=== PATIENT | male | born 1975 | race Caucasian/White ===

== ENCOUNTER 2018-12-25 12:33 | Emergency (ER) | payer SELFPAY ==
[2018-12-25 12:34] VITALS: BP 138/88; PULSE 57; RESP 16; TEMP 36.6; O2SAT 99; BMI 24.5
--- NOTE | 2018-12-25 12:56 | EKG12_ITS ---
Test Reason : Blood Pressure : / mmHG Vent. Rate : 050 BPM Atrial Rate : 050 BPM P-R Int : 190 ms QRS Dur : 120 ms QT Int : 434 ms P-R-T Axes : 069 068 045 degrees QTc Int : 395 ms Sinus bradycardia Left ventricular hypertrophy with QRS widening Abnormal ECG Confirmed by SHILA SALEH, RAYSA ([id number]), news assignment editor RAYSHAWN VAZQUEZ ([id number]) on 12/26/2018 11:44:14 AM Referred By: JOHN Confirmed By:RAYSA FUCHS MD
--- NOTE | 2018-12-25 12:56 | RAD_ITS ---
STUDY: X-RAY CHEST REASON FOR EXAM: Male, 43 years old. Shortness of breath. Chest tightness. TECHNIQUE: Single AP portable view of the chest. COMPARISON: June 28, 2016. FINDINGS: The lungs are clear and expanded. There is no demonstrated pleural abnormality. Normal size heart. Normal mediastinum and christopher. Normal visualized pulmonary arteries. Normal visualized aortic arch and descending thoracic aorta. Normal visualized thoracic spine. Normal visualized ribs, clavicles, and shoulders. There is no demonstrated abnormality of the visualized soft tissue structures of the upper abdomen. RAD/Chest 1 View (Portable) IMPRESSION: Normal x-ray examination of the chest. Electronically Signed: Ambrosio Kirk MD at 13:10 EDT , Service support ,
[2018-12-25] MEDS: 0.9% Normal Saline 1,000 ML 1000 ML IV (13:12)
[2018-12-25 13:13] VITALS: BP 150/86; PULSE 50; RESP 11; O2SAT 100
[2018-12-25 13:14] LABS: Absolute Lymphocyte Count 1.58 X10^3/uL (0.83-4.51); Absolute Neutrophil Count 3.3 X10^3/uL (2.0-7.7); Basophil# 0.03 X10^3/uL; Basophil% 0.5 % (0-1); Eosinophil# 0.13 X10^3/uL; Eosinophils% 2.3 % (0-5); Hematocrit 44.6 % (40-54); Hemoglobin 14.9 g/dL (13.0-16.5); Lymphocyte # 1.58 X10^3/ul (4.0); Lymphocyte % 28.4 % (19-41); Mean Corp Hgb Conc 33.4 g/dL (32-36); Mean Corpuscular Hgb 31.6 pg (27.0-32.0); Mean Corpuscular Volume 94.7 fL (80-94); Mean Platelet Vol. 9.5 fl (6.2-12.0); Monocyte# 0.54 X10^3/uL; Monocyte% 9.7 % (0-10); NRBC Flagged by Analyzer 0 % (0-5); Neutrophil # 3.26 X10^3/uL (2.7-7.7); Neutrophil % 58.7 % (47-70); Platelet Count 225 K/mm3 (150-450); RBC Distribution Width CV 12.2 % (11.6-14.6); RBC Distribution Width SD 42.9 fl (35.1-43.9); Red Blood Count 4.71 M/mm3 (4.6-6.2); White Blood Count 5.6 K/mm3 (4.4-11.0)
[2018-12-25 13:27] LABS: D-Dimer Quantitative (DVT/PE) < 0.27 FEU/ug/m (0.27-0.49)
[2018-12-25 13:32] LABS: Anion Gap 5 (5-15); BUN 12 mg/dL (7-18); BUN/Creat Ratio 12.6 RATIO (10-20); Calcium,Total 9.5 mg/dL (8.5-10.1); Chloride 108 mmol/L (98-107); Creatinine, Serum 0.96 mg/dL (0.70-1.30); EST Glomerular Filtration Rate 91 mL/min (>60); Est Glom Filt Rate - Afr Amer 111 mL/min (>60); Estimated Creatinine Clearance 118.58 ml/min; Glucose 98 mg/dL (74-106); Potassium 3.8 mmol/L (3.5-5.1); Sodium Level 140 mmol/L (136-145)
--- NOTE | 2018-12-25 14:04 | ED.DCSUM_ITS ---
- ER Visit Summary Date of Service: 12/25/18 Chief Complaint: Tingling all over. History of Present Illness: The patient is a 43 M presenting with multiple complaints. Patient states he has a sensation of tingling in both arms. He states that this was worse yesterday. He had an episode of palpitations and not feeling right. He denies chest pain or syncope. Denies fever or cough. Denies abdominal pain. He states he has a history of anxiety. He has been under increased stress as he is trying to reconcile with his . Denies suicidal or homicidal ideation. He is a smoker. Denies PE/DVT risk factors. Physical Examination: Vitals are stable. Patient is afebrile. Alert no acute distress. HEENT exam is unremarkable. Neck is supple. Lungs are clear and equal bilaterally. Heart is regular rate and rhythm. Abdomen is soft nontender nondistended. Extremities are unremarkable. Skin is warm and dry. No focal neurologic deficit. NIH 0 Remainder of exam is unremarkable. Emergency Department Course and Treatment: EKG is sinus rhythm rate of 50 with no acute ischemic changes. CBC, chemistries unremarkable. Troponin is negative. D-dimer negative. Chest x-ray shows no acute process. On reevaluation, patient is feeling improved. He declined delta troponin. He will follow-up with his primary care physician. He is advised return to ED for worsening complaints. Disposition: Discharge home Impression: Palpitations, resolved; anxiety This note was generated with [employer] dictation software. It may contain incorrect words, spelling, and punctuation that were not noted in review of the chart prior to signing ED Disposition - Plan for ED Patient: Instructions: Anxiety Reaction, Palpitations Referrals: Jhonny Stringer III, MD [Primary Care Provider] -
[2018-12-25 14:50] VITALS: BP 129/71; PULSE 56; RESP 16; O2SAT 99
--- NOTE | 2018-12-25 14:59 | ED.DEP ---
ED Disposition - Plan for ED Patient: Instructions: Palpitations, Anxiety Reaction Referrals: Jhonny Stringer III, MD [Primary Care Provider] -
[2018-12-25 15:17] VITALS: BP 131/106; PULSE 60; RESP 17; O2SAT 99
== END 2018-12-25 15:18 | disposition home or self-care (01) ==
LOC: ED 13:14
PROVIDERS: Emergency Provider Emergency Medicine; Family Provider Family Medicine; PCP Family Medicine
DX: R00.2 Palpitations (principal); F41.9 Anxiety disorder, unspecified; F17.200 Nicotine dependence, unspecified, uncomplicated
CPT/HCPCS: 71045; 80048; 84484; 85025; 85379; 93005; 96360; 99284; J7030; A4216

== ENCOUNTER → 2019-12-01 17:15 | Outpatient (CLI) | payer SELFPAY | LOC: MTDU 17:15 | PROVIDERS: PCP Family Medicine; Referring Provider Family Medicine; Visit Provider Family Medicine | DX: Z20.828 Contact with and (suspected) exposure to other viral communicable diseases (principal) | CPT/HCPCS: 87635; 94799; U0003 ==

== ENCOUNTER 2022-12-31 13:06 | Emergency (ER) | payer OTHER, SELFPAY ==
[2022-12-31 13:08] VITALS: BP 110/66; PULSE 60; RESP 18; TEMP 35.8; O2SAT 100
[2022-12-31] MEDS: Ibuprofen 600 MG Tablet PO (13:53)
--- NOTE | 2022-12-31 14:00 | RAD_ITS ---
STUDY: X-RAY - LEFT HUMERUS REASON FOR EXAM: Male, 47 years old. Left arm pain following a fall. TECHNIQUE: 3 view(s) of the humerus. COMPARISON: None. FINDINGS: Normal visualized humerus. There is no demonstrated fracture or osseous destructive process. There is no demonstrated soft tissue abnormality. RAD/Humerus min 2 Views IMPRESSION: Normal x-ray examination of the humerus. Electronically Signed: Shayne Albert MD at 14:25 EDT ,
--- NOTE | 2022-12-31 14:00 | RAD_ITS ---
STUDY: X-RAY - LEFT ELBOW REASON FOR EXAM: Male, 47 years old. Left elbow pain following a fall. TECHNIQUE: 3 view(s) of the elbow. COMPARISON: None. FINDINGS: Normal visualized humerus, radius and ulna. Normal radiocapitellar and ulnotrochlear articulations. The soft tissue structures are unremarkable. RAD/Elbow min 3 Views IMPRESSION: Normal x-ray examination of the elbow. Electronically Signed: Shayne Albert MD at 14:24 EDT ,
--- NOTE | 2022-12-31 15:01 | EX.ED.GENINJ ---
HPI History of Present Illness Chief Complaint: Fall Informant: patient Narrative Narrative: Patient is a 47-year-old male with no significant past medical history presenting for evaluation after fall. 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 The ladder fell underneath him. He landed mostly on his left side. He is complaining of pain over his left ribs, his left elbow and some slight pain of his right forearm and right ankle. Denied his head and denies any loss of conscious. Is not any blood thinners. Did not take anything for pain prior to arrival. This is a Workmen's Compensation injury. No other complaints or concerns at this time. [facility] Medical History Fall Home Medications ginkgo biloba 120 mg tablet 1 tab PO DAILY 06/28/16 [History Last Taken Unknown] horse chestnut 300 mg capsule 300 mg PO DAILY 06/28/16 [History Last Taken Unknown] multivitamin (Multiple Vitamins tablet) 1 ea PO DAILY 06/28/16 [History Last Taken Unknown] oxycodone-acetaminophen 5 mg-325 mg tablet (Percocet) 1 tab PO Q8H PRN pain 3 days #10 tabs 12/31/22 [Rx Last Taken Unknown] Allergy/AdvReac Type Severity Reaction Status Date / Time insect venom Allergy Hives Verified 12/31/22 13:08 Social History Smoking Status: Current every day smoker tobacco type: cigarettes ROS ROS ED Constitutional Constitutional ED: Denies chills Eyes Eyes: Denies change in vision Cardiovascular Cardiovascular: Denies chest pain Respiratory/Chest Respiratory/Chest: Reports other Details: Chest wall pain/rib pain on the left side ; Denies cough or dyspnea Gastrointestinal Gastrointestinal: Denies abdominal pain, nausea or vomiting Musculoskeletal Musculoskeletal: Reports other Details: Right distal forearm pain, left elbow/distal humerus pain, right ankle pain ; Denies back pain or myalgias Integumentary Reports Abrasions; Denies rash Neurologic Neurologic: Denies headache(s), paresthesias or weakness Hematologic/Lymphatic Hematologic/Lymphatic: Denies easy bleeding or easy bruising EXAM Physical Exam Const Vital Signs: 12/31/22 13:08 12/31/22 13:25 Temperature 96.5 F L Temperature Source Temporal Pulse Rate 60 Respiratory Rate 18 Respiratory Effort Normal Non-Labored Respiratory Depth Normal Respiratory Pattern Normal Blood Pressure 110/66 Blood Pressure Mean 80 Pulse Ox 100 Oxygen Delivery Method Room Air Positive well nourished and well developed General Appearance ED: well developed and NAD HEENT Reports TM's clear atraumatic Tympanic Membrane ED: Yes TM's clear Eyes PERRL and EOMs intact bilaterally Neck full ROM General: Negative for tenderness Chest Wall inspection of chest normal Chest Narrative: Very mild tenderness to palpation over the left lower ribs. No chest wall crepitus. No deformity. No flail chest Resp normal respiratory effort and clear to auscultation bilaterally Cardio regular rhythm and no murmurs Rate: regular rate GI normal to inspection, nondistended, normoactive bowel sounds Back/Spine normal to inspection and no thoracic nor lumbar tenderness Extremity Extremity Narrative: Right upper extremity?no deformity, no bony abnormalities or tenderness. Specifically no tenderness over the distal radius, ulna or anatomical snuffbox Upper extremity?no obvious deformity. Mild bony tenderness to the left olecranon and the distal humerus. No bony tenderness over the radial ulnar head, no wrist deformity or tenderness to palpation. Lower extremities?pelvis is stable. No obvious deformity. Very mild tenderness to the ankle but no bony abnormalities or soft tissue swelling appreciated. 2+ DP pulse present General Extremety ED: Negative for deformity or edema General Extremity: Negative for deformity or edema Neuro oriented x3 Ama Coma Scale: document GCS findings Spontaneous Obeys Commands Oriented 15 Sensorium / Orientation: alert Psych mental status grossly normal and thought process normal Skin Skin Narrative: Visual abrasions with no active bleeding to the left distal humerus and the right palmar aspect of the distal forearm MDM MDM MDM Narrative Medical decision making narrative: Valuated for fall of an 18 foot ladder. Does have some associated pain to no obvious deformity. White complain of some rib pain he does not have any significant tenderness palpation/pinpoint area of tenderness, is not hypoxic or tachycardic. I have a low suspicion for rib fracture do not think he requires a rib series at this time. X-ray of the left elbow as well as the humerus, reviewed by myself as well as radiology does not show any acute fracture. Patient given dose of Motrin in the ER. He is given a Lidoderm patch for his rib pain and 1 dose of oxycodone prior to discharge for further pain control. Will be scribed short course of Percocet for pain control. We will [facility]-up with [facility]. Is given work restrictions. Given return precautions. Discharged home in stable condition. Radiography Diagnostic Testing: Clinical Impression(s) from Imaging Studies Elbow X-Ray 12/31/22 14:00 IMPRESSION: Normal x-ray examination of the elbow. Electronically Signed: Shayne Albert MD at 14:24 EDT , Humerus X-Ray 12/31/22 14:00 IMPRESSION: Normal x-ray examination of the humerus. Electronically Signed: Shayne Albert MD at 14:25 EDT , Discharge Plan Triage Chief Complaint: Fall ED Provider: Bia Justice Dx/Rx/DC Orders Clinical Impression: Accidental fall from ladder, Acute pain of right wrist, Elbow pain, left, Chest wall contusion Instructions: ED Contusion, Elbow, ED Chest Wall Contusion Prescriptions: New oxycodone-acetaminophen [Percocet] 5-325 mg tablet 1 tab PO Q8H PRN (Reason: pain) 3 Days Qty: 10 0RF No Action multivitamin [Multiple Vitamins] 1 EACH tablet 1 ea PO DAILY ginkgo biloba 120 MG tablet 1 tab PO DAILY horse chestnut 300 MG capsule 300 mg PO DAILY Stand Alone Forms: Work Status Form Primary Care Provider: Khanh Nguyen Referrals: [facility] [Group of Physicians] - As soon as possible Khanh Nguyen PA [Primary Care Provider] - Activity Restrictions/Additional Instructions: [facility] with the [facility]. May also take [id number]-[id number] ibuprofen (600 mg) and use bnaa-[id number]-mdnwtul Salonpas Exer strength 4% patches for rib pain. Disposition Disposition: Home, Self Care
[2022-12-31] MEDS: Lidocaine 5% Patch 1 PATCH TOPICAL (15:17)
== END 2022-12-31 15:38 | disposition home or self-care (01) ==
PROVIDERS: Emergency Provider Emergency Medicine; PCP Physician Assistant; Visit Provider Emergency Medicine
DX: M25.531 Pain in right wrist (principal); M25.522 Pain in left elbow; S20.20XA Contusion of thorax, unspecified, initial encounter; F17.210 Nicotine dependence, cigarettes, uncomplicated; W11.XXXA Fall on and from ladder, initial encounter
CPT/HCPCS: 73060; 73080; 99283

== ENCOUNTER 2024-08-28 15:08 | Emergency (ER) | payer SELFPAY ==
[2024-08-28 15:08] VITALS: BP 140/95; PULSE 78; RESP 18; TEMP 36.2; O2SAT 97; BMI 25.5
--- NOTE | 2024-08-28 15:17 | EKG12_ITS ---
Test Reason : Blood Pressure : */* mmHG Vent. Rate : 76 BPM Atrial Rate : 76 BPM P-R Int : 158 ms QRS Dur : 100 ms QT Int : 374 ms P-R-T Axes : 73 80 63 degrees QTcB Int : 420 ms Normal sinus rhythm with sinus arrhythmia Normal ECG Confirmed by Gabe Reynoso ([id number]), editor managing director MANI NICK ([id number]) on 09/04/2024 12:57:56 PM Referred By: Confirmed By: Gabe Reynoso
--- NOTE | 2024-08-28 15:23 | RAD_ITS ---
PROCEDURE: CHEST PA AND LATERAL 08/28/2024 REASON FOR EXAM: CHEST PAIN TECHNIQUE: Frontal and lateral views of the chest. COMPARISON: None. FINDINGS: Hardware: None. Heart: The heart size is normal. Mediastinum: The mediastinal contour is unremarkable. Lungs: Findings of emphysema and scattered areas of scarring. No focal consolidation, pleural effusion or pneumothorax. Bones: The bones are unremarkable. RAD/Chest PA and Lateral IMPRESSION: Emphysema. No acute findings. Reading Location: [id number]
--- NOTE | 2024-08-28 15:24 | ED.VIS.CHEST ---
HPI History of Present Illness Chief Complaint: Chest Pain Informant: patient and spouse/S.O. Narrative Narrative: Presents today recurrent chest tightness today. Yesterday had symptoms noting tightness left side discomfort bilateral neck and with his head. [place] lightheaded. 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 He may had symptoms few weeks ago. No history of MIs. Tobacco history. Maternal grandparents with MIs in their 60s. Denies hypertension diabetes or hyperlipidemia. Tobacco history. No recent travel or surgery. No history PE or DVT. Denies cough symptoms. No history of stress test. Prior Similar Symptoms: Yes CVD Risk Factors: Positive for Smoking; Negative for Hypertension, Diabetes, Hypercholesterolemia or Family History 1' </=55 PE Risk Factors: Negative for Recent Travel/Surgery, Recent Immobilization, Prior DVT or PE or Cancer [facility] Medical History Fall Home Medications ?Medication ?Instructions ?Recorded ?Last Taken ?Type lorazepam 0.5 mg tablet 0.5 mg PO DAILY PRN anxiety 08/28/24 08/28/24 History Allergy/AdvReac Type Severity Reaction Status Date / Time insect venom Allergy Hives Verified 08/28/24 15:08 Family History no significant family his Social History Smoking Status: Current every day smoker tobacco type: cigarettes ROS ROS ED Constitutional Constitutional ED: Denies chills, fever(s) or sweats ENT ENT ED: Denies sore throat Cardiovascular Cardiovascular: Reports chest pain; Denies leg edema, palpitations or racing heartbeat Respiratory/Chest Respiratory/Chest: Denies cough, dyspnea or dyspnea on exertion Gastrointestinal Gastrointestinal: Denies abdominal pain, diarrhea, nausea or vomiting Genitourinary Genitourinary ED: Denies dysuria, hematuria or urinary frequency Musculoskeletal Musculoskeletal: Denies back pain, extremity pain or neck pain Integumentary Denies rash or wounds Neurologic Neurologic: Denies headache(s), paresthesias or weakness EXAM Physical Exam Const Vital Signs: 08/28/24 15:08 08/28/24 15:31 08/28/24 15:32 Temperature 97.2 F L Temperature Source Temporal Pulse Rate 78 Respiratory Rate 18 Respiratory Effort Normal Non-Labored Blood Pressure 140/95 H Blood Pressure Mean 110 Pulse Ox 97 Oxygen Delivery Method Room Air Room Air 08/28/24 16:28 08/28/24 16:56 08/28/24 18:00 Temperature Temperature Source Pulse Rate 53 L 61 60 Respiratory Rate 15 16 13 Respiratory Effort Blood Pressure 142/100 H 137/80 H 129/80 H Blood Pressure Mean 114 99 92 Pulse Ox 100 100 100 Oxygen Delivery Method Room Air 08/28/24 18:09 Temperature 97.9 F Temperature Source Pulse Rate 60 Respiratory Rate 13 Respiratory Effort Blood Pressure 129/80 H Blood Pressure Mean 96 Pulse Ox 100 Oxygen Delivery Method Positive well nourished and well developed General Appearance ED: well developed and NAD HEENT Reports moist mucous membranes normocephalic and atraumatic Eyes General Eye ED: Yes normal appearance of both eyes Neck full ROM Chest Wall Chest: Negative for tenderness Resp normal respiratory effort and normal air movement Effort and Inspection: symmetric chest movement; Negative for respiratory distress Cardio regular rate, regular rhythm and no murmurs Peripheral Pulses: pulses 2+ throughout GI normal to inspection, nondistended, normoactive bowel sounds and non-tender Palpation: Negative for guarding or rebound tenderness present Extremity normal to inspection General Extremety ED: Negative for edema or tenderness General Extremity: Negative for edema Neuro oriented x3, CN's II-XII intact bilaterally and no sensory deficits noted Neuro Narrative: No focal deficits. Sensorium / Orientation: awake and alert Skin no rashes or lesions noted and no wounds Heart Score History: Slightly/Non-Suspicious ECG: Normal Age: >45 - <65 years Risk Factors: 1 or 2 Risk Factors Troponin: </= Normal Limit Score: 2 MDM MDM MDM Narrative Medical decision making narrative: Interventions / MDM: Differential diagnosis: Chest pain, tobacco dependence Diagnosis considered but do not suspect: Pulmonary emboli however PERC criteria negative. ACS however EKG and cardiac enzymes negative. My EKG interpretation: Sinus rate of 76, no ST or T wave changes. QTc 420. Imaging independently reviewed and interpreted by myself: 2 view chest x-ray: Hyperinflated lungs, also read by radiology. External documents reviewed: N/A Test considered but not ordered:N/A ED course: Transient chest tightness symptoms lightheaded symptoms. PERC criteria negative. EKG no acute findings. Cardiac workup initiated. Chest x-ray ordered. 1606: Chest x-ray negative. CBC results returned hemoglobin 14.8 white count 7.5 platelets 261. 1640: Remains symptom-free. Initial troponin negative. Updated patient on findings. Discussed emphysema changes and chest x-ray. Discussed tobacco cessation. Will await delta troponin prior to disposition. Delta troponin negative. Remains symptom-free. Discussed tobacco cessation again. Discussed outpatient follow-up for further workup as needed. Discussed return precautions. All questions were answered. Re-evaluation: stable Disposition discussed with patient/family/significant other: Patient and significant other Case discussed with consulting clinician: N/A This note was generated with [employer] software. It may contain incorrect words, spelling, and punctuation that were not noted in checking the note before signing. Lab Data Attestation: I reviewed the patient's lab results. Labs: Laboratory Results - last 24 hr 08/28/24 08/28/24 15:25 17:20 WBC 7.5 RBC 4.72 Hgb 14.8 Hct 43.6 MCV 92.4 MCH 31.4 MCHC 33.9 RDW Std Deviation 41.8 RDW Coeff of Jennyfer 12.2 Plt Count 261 MPV 9.5 Immature Gran % (Auto) 0.400 Neut % (Auto) 72.6 H Lymph % (Auto) 17.9 L Linn % (Auto) 7.6 Eos % (Auto) 1.1 Baso % (Auto) 0.4 Absolute Neuts (auto) 5.5 Absolute Lymphs (auto) 1.34 Nucleated RBC % 0 Sodium 140 Potassium 4.2 Chloride 104 Carbon Dioxide 24.9 Anion Gap 12 BUN 15 Creatinine 0.95 Estim Creat Clear Calc 113.65 Est GFR (MDRD) Non-Af 98 BUN/Creatinine Ratio 15.2 Glucose 117 H Calcium 9.9 Troponin T High Sens 7 Troponin T Hi Sens 2 Hr 6 Radiography Diagnostic Testing: Clinical Impression(s) from Imaging Studies Chest X-Ray 08/28/24 15:23 IMPRESSION: Emphysema. No acute findings. Reading Location: [id number] Discharge Plan Triage Chief Complaint: Chest Pain ED Provider: Morales Lozada Dx/Rx/DC Orders Clinical Impression: Chest pain, Tobacco dependence Instructions: Quitting Smoking, ED Chest Pain, Uncertain Cause Prescriptions: No Action lorazepam 0.5 mg tablet 0.5 mg PO DAILY PRN (Reason: anxiety) Primary Care Provider: Khanh Nguyen Referrals: Khanh Nguyen, PA [Primary Care Provider] - 3-5 Days Activity Restrictions/Additional Instructions: Your cardiac workup negative today. X-ray with emphysema findings concerned with your tobacco history. Stop smoking. Follow-up with your primary care doctor for further testing. If you develop new or worsening symptoms, return to the ED for reevaluation. Print Language: Slovenian Disposition Disposition: Home, Self Care Discharge Date/Time: 08/28/24 18:12
[2024-08-28 15:41] LABS: Absolute Lymphocyte Count 1.34 X10^3/uL (0.83-4.51); Absolute Neutrophil Count 5.5 X10^3/uL (2.0-7.7); Basophil# 0.03 X10^3/uL; Basophil% 0.4 % (0-1); Eosinophil# 0.08 X10^3/uL; Eosinophils% 1.1 % (0-5); Hematocrit 43.6 % (40-54); Hemoglobin 14.8 g/dL (13.0-16.5); Lymphocyte # 1.34 X10^3/ul (0.83-4.51); Lymphocyte % 17.9 % (19-41); Mean Corp Hgb Conc 33.9 g/dL (32-36); Mean Corpuscular Hgb 31.4 pg (27.0-32.0); Mean Corpuscular Volume 92.4 fL (80-94); Mean Platelet Vol. 9.5 fl (6.2-12.0); Monocyte# 0.57 X10^3/uL; Monocyte% 7.6 % (0-10); NRBC Flagged by Analyzer 0 % (0-5); Neutrophil # 5.45 X10^3/uL (2.7-7.7); Neutrophil % 72.6 % (47-70); Platelet Count 261 K/mm3 (150-450); RBC Distribution Width CV 12.2 % (11.6-14.6); RBC Distribution Width SD 41.8 fl (35.1-43.9); Red Blood Count 4.72 M/mm3 (4.6-6.2); White Blood Count 7.5 K/mm3 (4.4-11.0)
[2024-08-28 16:22] LABS: Anion Gap 12 (5-15); BUN 15 mg/dL (4-19); BUN/Creat Ratio 15.2 RATIO (10-20); Calcium,Total 9.9 mg/dL (7.6-11.0); Carbon Dioxide 24.9 mmol/L (21.0-32.0); Chloride 104 mmol/L (98-108); Creatinine, Serum 0.95 mg/dL (0.70-1.20); EST Glomerular Filtration Rate 98 (>60); Estimated Creatinine Clearance 113.65 ml/min (50-250); Glucose 117 mg/dL (70-99); Potassium 4.2 mmol/L (3.3-5.1); Sodium Level 140 mmol/L (133-145); Troponin T High Sensitivity 7 ng/L (<=22)
[2024-08-28 16:28] VITALS: BP 142/100; PULSE 53; RESP 15; O2SAT 100
[2024-08-28 16:56] VITALS: BP 137/80; PULSE 61; RESP 16; O2SAT 100
[2024-08-28 17:47] LABS: Troponin T High Sens 2 HR 6 ng/L (<=22)
[2024-08-28 18:00] VITALS: BP 129/80; PULSE 60; RESP 13; O2SAT 100
[2024-08-28 18:09] VITALS: BP 129/80; PULSE 60; RESP 13; TEMP 36.6; O2SAT 100
== END 2024-08-28 18:12 | disposition home or self-care (01) ==
PROVIDERS: Emergency Provider Emergency Medicine; PCP Physician Assistant; Visit Provider Emergency Medicine
DX: R07.9 Chest pain, unspecified (principal); F17.210 Nicotine dependence, cigarettes, uncomplicated
CPT/HCPCS: 71046; 80048; 84484; 85025; 93005; 99283

== ENCOUNTER 2025-01-02 13:18 | Emergency (ER) | payer OTHER, SELFPAY ==
[2025-01-02 13:22] VITALS: BP 135/81; PULSE 68; RESP 18; TEMP 36.3; O2SAT 100; BMI 25.4
--- NOTE | 2025-01-02 14:24 | EKG12_ITS ---
Test Reason : ELECTRIC SHOKE Blood Pressure : */* mmHG Vent. Rate : 62 BPM Atrial Rate : 62 BPM P-R Int : 190 ms QRS Dur : 120 ms QT Int : 404 ms P-R-T Axes : 65 55 44 degrees QTcB Int : 410 ms Normal sinus rhythm Non-specific intra-ventricular conduction delay Minimal voltage criteria for LVH, may be normal variant ( Sokolow-Wilde ) Borderline ECG Confirmed by RAYSA FUCHS MD ([id number]), editor magazine MANI NICK ([id number]) on 01/03/2025 9:10:49 AM Referred By: GABY/KELIN Confirmed By: RAYSA FUCHS MD
--- NOTE | 2025-01-02 14:24 | RAD_ITS ---
PROCEDURE: CHEST PA AND LATERAL 01/02/2025 REASON FOR EXAM: ELECTROCUTED TECHNIQUE: Procedure Code: RADCXR Modality: DX Procedure: CHEST PA AND LATERAL COMPARISON: None FINDINGS: Hardware: EKG leads overlie the chest Heart: The heart size is normal. Mediastinum: The mediastinal contour is unremarkable. Lungs: The lungs are clear. Bones: RAD/Chest PA and Lateral IMPRESSION: No acute pulmonary process Reading Location: [id number]
--- NOTE | 2025-01-02 14:24 | CT_ITS ---
PROCEDURE: BRAIN/HEAD WITHOUT CONTRAST 01/02/2025 REASON FOR EXAM: HEADACHE TECHNIQUE: Procedure Code: CTBR Modality: CT Procedure: BRAIN/HEAD WITHOUT CONTRAST Coronal and Sagittal reconstruction series were provided. One or more dose reduction techniques were used (e.g., Automated exposure control, adjustment of the mA and/or kV according to patient size, use of iterative reconstruction technique. RADIATION DOSE SUMMARY: CTDlvol: 89.98 mGy DLP: 1625.96 mGycm COMPARISON: None FINDINGS: Brain: No acute hemorrhage, midline shift or mass effect, there is a area of hypoattenuation in the right parietal lobe likely a remote infarct but this could be a prominent perivascular space CSF Spaces: Normal Sinuses/Mastoids: Clear at visualized levels Bones: No skull fracture or scalp hematoma CT/Brain/Head without Contrast IMPRESSION: No acute hemorrhage midline shift or mass effect Subtle hypoattenuation in the right parietal region on axial image 26, likely r emote infarct or prominent perivascular space Reading Location: [id number]
[2025-01-02 14:49] LABS: Hematocrit 39.6 % (40-54); Hemoglobin 13.6 g/dL (13.0-16.5); Immature Granulocytes Count 0.010 X10^3/uL (0.0-0.0); Mean Corp Hgb Conc 34.3 g/dL (32-36); Mean Corpuscular Volume 92.5 fL (80-94); Mean Platelet Vol. 9.6 fl (6.2-12.0); NRBC Flagged by Analyzer 0 % (0-5); Platelet Count 249 K/mm3 (150-450); RBC Distribution Width CV 12.3 % (11.6-14.6); RBC Distribution Width SD 41.5 fl (35.1-43.9); Red Blood Count 4.28 M/mm3 (4.6-6.2); White Blood Count 4.7 K/mm3 (4.4-11.0)
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
[2025-01-02 15:45] LABS: AST(SGOT) 30 U/L (<=37); Alanine Aminotransfer ALT/SGPT 21 U/L (<=46); Albumin, Serum 4.5 g/dL (3.5-5.0); Alkaline Phosphatase 50 U/L (40-129); Anion Gap 11 (5-15); BUN 16 mg/dL (4-19); BUN/Creat Ratio 19.6 RATIO (10-20); CPK Total, Creatine Kinase 205 U/L (24-195); Calcium,Total 9.2 mg/dL (7.6-11.0); Carbon Dioxide 23.9 mmol/L (21.0-32.0); Chloride 105 mmol/L (98-108); Estimated Creatinine Clearance 127.14 ml/min (50-250); Globulin 2.5 g/dL (2.2-4.2); Glucose 92 mg/dL (70-99); Potassium 3.9 mmol/L (3.3-5.1); Troponin T High Sensitivity < 6 ng/L (<=22)
[2025-01-02 16:10] LABS: Squamous Epithelial Cells - UA 0 SEEN /hpf (0-5)
[2025-01-02 16:13] LABS: Color, Urine Yellow (Yellow); Glucose, Dipstick Normal (Normal); Ketone-Dipstick 50 mg/dl (Negative); Leukocyte Esterase-Dipstick Negative /ul (Negative); Nitrite-Dipstick Negative (Negative); Occult Blood-Urine Negative /ul (Negative); Protein-Dipstick 15 mg/dl (Negative); Specific Gravity, Urine 1.010 (1.002-1.030); Urine Bilirubin Dipstick Negative (Negative)
[2025-01-02 16:20] LABS: Mucous, Urine 1+ /hpf (<or=2+); Red Blood Cells-Urine 0-5 SEEN /hpf (0-5)
[2025-01-02 17:04] VITALS: BP 145/57; PULSE 85; RESP 18; TEMP 36.6; O2SAT 95
== END 2025-01-02 17:04 | disposition home or self-care (01) ==
PROVIDERS: Emergency Provider Surgery; PCP Internal Medicine; Visit Provider Surgery
DX: T75.4XXA Electrocution, initial encounter (principal); E88.89 Other specified metabolic disorders; G35 Multiple sclerosis; F41.9 Anxiety disorder, unspecified; R82.71 Bacteriuria; R03.0 Elevated blood-pressure reading, without diagnosis of hypertension; F17.210 Nicotine dependence, cigarettes, uncomplicated; Z79.899 Other long term (current) drug therapy; X58.XXXA Exposure to other specified factors, initial encounter
CPT/HCPCS: 70450; 71046; 80053; 81001; 82550; 83605; 84484; 85025; 93005; 96374; 96376; 99284; A4216